=== PATIENT | female | born 1960 | race Caucasian/White ===

== ENCOUNTER 2019-03-10 13:44 | Emergency (ER) | payer OTHER ==
[2019-03-10 14:33] VITALS: BP 123/72
--- NOTE | 2019-03-10 15:30 | UC ---
Complaint Female HPI - HPI Summary HPI Summary: Pt presents with c/o urinary frequency and urgency that began two weeks ago. Denies, fever or chills. Denies risk for STI vaginal discharge or low back or pelvic pain. - History Of Current Complaint Chief Complaint: UCGU Stated Complaint: URINARY Time Seen by Provider: 03/10/19 15:20 Hx Obtained From: Patient ?: No Onset/Duration: Sudden Onset, Lasting Days, Still Present Timing: Constant Severity Initially: Mild Severity Currently: Mild Pain Intensity: 0 Character: Not Applicable Aggravating Factor(s): Urination Associated Signs And Symptoms: Positive: Negative - Risk Factors Ectopic Risk Factor: Negative, Prior Ectopic - Allergies/Home Medications Allergies/Adverse Reactions: Allergies Allergy/AdvReac Type Severity Reaction Status Date / Time Sulfa (Sulfonamide Allergy Hives Verified 03/10/19 14:25 Antibiotics) Home Medications: Home Medications Levothyroxine Sodium [Synthroid] 25 mcg PO QAM 03/10/19 [History Confirmed 03/10] Naproxen Sodium [Aleve] 440 mg PO DAILY PRN 03/10/19 [History Confirmed 03/10/19 ] PMH/Surg Hx/FS Hx/Imm Hx Previously Healthy: Yes - Surgical History Surgical History: Yes - Family History Known Family History: Positive: Cardiac Disease - Social History Occupation: Employed Full-time Lives: With Family Alcohol Use: Rare Substance Use Type: None Smoking Status (MU): Never Smoked Tobacco Have You Smoked in the Last Year: No Review of Systems All Other Systems Reviewed And Are Negative: Yes Constitutional: Positive: Negative Skin: Positive: Negative Eyes: Positive: Negative ENT: Positive: Negative Respiratory: Positive: Negative Cardiovascular: Positive: Negative Gastrointestinal: Positive: Negative Genitourinary: Positive: Frequency, Urgency Motor: Positive: Negative Neurovascular: Positive: Negative Musculoskeletal: Positive: Negative Neurological: Positive: Negative Psychological: Positive: Negative Is Patient Immunocompromised?: No Physical Exam Triage Information Reviewed: Yes Appearance: Well-Appearing Vital Signs: Initial Vital Signs Temp 97.9 F 03/10/19 14:23 Pulse 66 03/10/19 14:23 Resp 16 03/10/19 14:23 BP 123/72 03/10/19 14:23 Pulse Ox 99 03/10/19 14:23 Vital Signs Reviewed: Yes Eye Exam: Normal ENT Exam: Normal Dental Exam: Normal Neck exam: Normal Respiratory Exam: Normal Cardiovascular Exam: Normal Abdominal Exam: Normal Abdomen Description: Positive: Nontender Musculoskeletal Exam: Normal Neurological Exam: Normal Psychological Exam: Normal Skin Exam: Normal Complaint Female Dx - Differential Dx/Diagnosis Differential Diagnosis/HQI/PQRI: Urinary Tract Infection Provider Diagnosis: UTI (urinary tract infection) Discharge - Sign-Out/Discharge Documenting (check all that apply): Patient Departure All imaging exams completed and their final reports reviewed: No Studies - Discharge Plan Condition: Stable Disposition: HOME Prescriptions: Cephalexin CAP* [Keflex 500 CAP*] 500 mg PO Q8H #21 cap Phenazopyridine TAB* [Pyridium 100 mg TAB*] 100 mg PO Q8H #3 tab Patient Education Materials: Urinary Urgency and Frequency (DC) Referrals: [facility] [Outside] - If Needed Non Staff,Doctor [Primary Care Provider] - - Billing Disposition and Condition Condition: STABLE Disposition: Home - Attestation Statements Provider Attestation: Per institutional requirements, I have reviewed the chart, however, I was not consulted specifically or made aware of this patient by the midlevel provider. I did not personally evaluate, interact with , or disposition this patient.
== END 2019-03-10 15:43 | disposition home or self-care (01) ==
LOC: UCCORT 13:44
DX: N39.0 Urinary tract infection, site not specified (principal); Z88.2 Allergy status to sulfonamides
CPT/HCPCS: 87077; 87086; 87186; 99202; G0463